=== PATIENT | female | born 2000 | race Caucasian/White ===

== ENCOUNTER 2025-02-07 11:50 | Outpatient (CLI) | payer OTHER, SELFPAY ==
[2025-02-07 15:40] LABS: Bacterial Vaginosis* Negative (Negative); Candida glab/krus NOT DETECTED (No Detected)
== END 2025-02-07 11:51 | disposition home or self-care (01) ==
PROVIDERS: Visit Provider Physician Assistant
DX: N89.8 Other specified noninflammatory disorders of vagina (principal); Z34.93 Encounter for supervision of normal pregnancy, unspecified, third trimester
CPT/HCPCS: 81513; 87086; 87481; 87661

== ENCOUNTER 2025-03-21 09:40 | Outpatient (CLI) | payer OTHER, SELFPAY ==
[2025-03-22 11:54] LABS: Strep B DNA Probe Negative (Negative)
[2025-03-22 12:21] LABS: Strep B Susceptibility Needed? No
== END 2025-03-21 09:41 | disposition home or self-care (01) ==
PROVIDERS: Visit Provider Obstetrics & Gynecology
DX: Z88.0 Allergy status to penicillin (principal); Z34.93 Encounter for supervision of normal pregnancy, unspecified, third trimester
CPT/HCPCS: 87081; 87653

== ENCOUNTER 2025-03-28 08:58 | Outpatient (CLI) | payer OTHER, SELFPAY ==
[2025-03-28] VITALS (14 sets, daily range): BP systolic 118–128; BP diastolic 74–87; PULSE 92–107; RESP 14–18; TEMP 36.9; O2SAT 96–98; BMI 34.3
--- OUTSIDE RECORDS SUMMARY | 2025-03-28 09:01 | XMS_ITS | Clinical Summary ---
Author Organization [employer] [facility] Address [address] [place] [id number] Care Team Providers Care Case Management Assistant Name Role Phone Tramaine Bhatia MD Primary Care Provi pippa Allergies Active AllergyReactionsCriticalityNoted FgmnBkkddbakRbpunibgefaTwac80/03/2013 CilantroShortness Of Cqywcz5209/09/2022Fish Containing GdxsguqlBywpyhl57/21/2023 GlutenGI Upset04/29/2019LatexShortness Of Sgndtj0704/29/2019Melon FlavorItching 05/09/2012PeanutShortness Of Eyzsfs5104/29/2019Tree EguSbtsginbhqhGcng36/27/2024 Unknown-Follow Up Needed (Include Details In Comments)Shortness Of Breath 05/09/2012 Cat, dog, seasonal, environmental Sheep/Ovine/[place] Containing ProductsShortness Of Zyibsu2905/09/2012 Medications MedicationSigDispense QuantityRefillsLast FilledStart DateEnd DateStatus thnwnes-tzyq-slrga acid (PREPLUS;NATALCARE PLUS) 27 mg iron- 1 mg tablet Take 1 Tablet by mouth once daily.Active ibuprofen (ADVIL; MOTRIN) 600 mg tablet Indications:Vacuum-assisted vaginal delivery (HC)Take 1 Tablet (600 mg) by mouth every 6 hours if needed for Pain. Maximum of 3200 mg in 24 hours. 50 Tablet ctive sennosides (SENNA) 8.6 mg tablet Indications:Vacuum-assisted vaginal delivery (HC)Take 1-2 Tablets (8.6-17.2 mg) by mouth 2 times daily if needed for Constipation. 60 Tablet ctive Active Problems ProblemNoted DateDiagnosed Date39 weeks gestation of nsfucxlpo72/27/2024 Premature rupture of membranes (PROM) affecting first ytpmkajfy40/27/2024Vacuum- assisted vaginal akezpnnm34/27/2024dnexal mass05/03/2019 Immunizations ImmunizationAdministration DatesNext DfiYMI6807/03/2023()Tdap05/12/2023,05/20/2016 Family History Medical HistoryRelationNameCommentsNo Known ProblemsFatherCancer-breastMother RelationNameStatusCommentsFatherAliveMother Social History Tobacco UseTypesPacks/DayYears UsedDateSmoking Tobacco: Never Tobacco Cessation:Counseling Given: Yes Alcohol UseStandard Drinks/WeekCommentsNot Currently0 (1 standard drink = 0.6 oz pure alcohol)Social ConnectionsAnswerDate RecordedDo you often feel lonely or isolated from those around you?Financial Resource StrainAnswerDate RecordedDifficulty of Paying Living Mozqsbre364ifficulty of Paying Living ExpensesNot on file07/01/2023Food InsecurityAnswerDate RecordedDo you worry your food will run out before you are able to buy more? Transportation NeedsAnswerDate RecordedDoes lack of transportation keep you from medical appointments?oes lack of transportation keep you from work, meetings or getting things that you need?Housing StabilityAnswerDate RecordedWhat is your housing situation today?Interpersonal Safety AnswerDate RecordedAre you being hit, kicked, pushed or yelled at (see row info)?No09/30/2023Interpersonal Safety Abuse 12 - 18Not on file09/30/2023 Interpersonal Safety Ambulatory VulnerabilityNot on file09/30/2023Utilities AnswerDate RecordedDo you have trouble paying for utilities (for example, heat, electricity, water, phone)?regnantCommentsNoSex and Gender InformationValueDate RecordedSex Assigned at BirthNot on fileLegal SexFemale 04/19/2012 6:17 AM CSTGender IdentityNot on fileSexual OrientationNot on file Obstetrics History GravidaParaTermPretermABIABSABEctopicMultipleLivingLive [id number] OutcomeGATotal LaborLabor/2nd/8vjSfawgmDbbYbrkOuleCFGKohO9D1LqoeJttp97/27/2024 Tzfd14f6i89k 59m11h 36m/0h 18m/0h 05m2.64 kg (5 lb 13.1 oz)FVAGINAL VACUEpidural Crzhpe91Ewxpolu Garcia, Ayan Luevano, MDComplications:Category II: IndeterminateDelivery Location:Hospital ([facility] ) Last Filed Vital Signs Vital SignReadingTime TakenCommentsBlood Wskibjmy204/63009/30/2023 4:32 PM CDT Wfzuj265209/30/2023 5:03 PM NFNWfqwjupwyvw49.1 ??C (98.8 ??F)09/30/2023 2:14 PM CDTRespiratory Blis321209/30/2023 2:14 PM CDTOxygen Akfbaclyqn57%09/30/2023 5:03 PM CDTInhaled Oxygen Concentration--Ajlzmr91.2 kg (130 lb 9.6 oz)09/30/2023 2:13 PM POGVqimee392.8 cm (5' 2.5)09/30/2023 2:13 PM CDTBody Mass Index23.51 09/30/2023 2:13 PM CDT Plan of Treatment Health MaintenanceDue DateLast DoneCommentsDepression screening for age 12+ 2010HPV series for age 9-45 (1 - 3-dose series)2013MI (ht and wt on same day) for age 18+2016Hepatitis C screening for age 18- Hepatitis B series for 19+ (1 of 3 - 19+ 3-dose series)2017Pap test for age 21-COVID-19 vaccine series ( - 2024- season)2024 Influenza Vaccine (#1)2024Tetanus pkebige21, 05/20/2016 HIV for age 15-21Kwgkijzsq35/05/2023Pneumococcal series for age 6-49Aged OutNo longer eligible based on patient's age to complete this topic Procedures Procedure NamePriorityDate/TimeAssociated DiagnosisCommentsHIV EXTERNALRoutine 12/09/2022 from Last 3 Months or Most Recently Relevant to Health Maintenance Results * HIV EXTERNAL (12/09/2022)ComponentValueRef RangeTest MethodAnalysis Time Performed AtPathologist SignatureEXTERNAL HIVNegativeMAYO CLINICSpecimen (Source)Anatomical Location / LateralityCollection Method / VolumeCollection TimeReceived TimeBloodBLOOD SPECIMEN / Unknown Narrative Authorizing ProviderResult TypeResult StatusRaquel Jim Garrido DO LABORATORYFinal ResultPerforming OrganizationAddressCity/State/ZIP CodePhone Number [facility] [address] [place] [phone], from Last 3 Months or Most Recently Relevant to Health Maintenance Insurance * Guarantor: IZABELLA GARLAND TypeRelation to PatientDate of BirthPhone Billing AddressPersonal/ObtccgRbeh49/20/2001 [address] [facility] [place] [id number] * Guarantor: Na GARLAND TypeRelation to PatientDate of BirthPhone Billing AddressPersonal/Family [address] [place] [address] * Guarantor: Andrew Garland TypeRelation to PatientDate of PhoneBilling AddressMotor BlqjvnqUtooiw44/13/1966 [address] [address] [place] [address] * Guarantor: IZABELLA GARLAND TypeRelation to PatientDate of BirthPhone Billing AddressMotor GgjreblTlui91/20/2001 [address] [id number] Advance Directives * Full Code (Latest Code Status on File) Date ActivatedDate InactivatedComments07/01/2023 5:02 PM07/03/2023 7:36 PMQuestion AnswerCommentsCode Status Discussion:* Reviewed Preferences * Full Code Date ActivatedDate InactivatedComments05/02/2019 11:28 AM05/03/2019 7:54 PM QuestionAnswerCommentsCode Status Discussion:* Discussed Care Teams Team MemberRelationshipSpecialtyStart DateEnd Date Tramaine Bhatia MD [address] [place] [address] [facility]
--- OUTSIDE RECORDS SUMMARY | 2025-03-28 09:01 | XMS_ITS | Encounter Summary ---
Author Organization [facility] Address [address] [place] [address] Care Team Providers Care Latex Foam Worker Name Role Phone ChrisManpreetMindinina Richmond APRN, C.N.P., D.N.P. Primary Car e Provider Encounter Details DateTypeDepartmentCare Team (Latest Contact Info)Nmpzjdulmlf15/13/2025Results Follow-Up Department of Obstetrics and Gynecology in [place], [place] [address] [place] [phone] Farshad Wong M.D. [address] [place] [phone] Bacterial Culture, Aerobic + Susceptibility, Urine Social History Tobacco UseTypesPacks/DayYears UsedDateSmoking Tobacco: NeverSmokeless Tobacco: NeverAlcohol UseStandard Drinks/WeekCommentsNever0 (1 standard drink = 0.6 oz pure alcohol)[facility] UtilitiesAnswerDate RecordedIn the past 12 months has the electric, gas, oil, or water company threatened to shut off services in your home?No09/10/2023Humiliation, Afraid, Rape, and Kick questionnaireAnswerDate RecordedWithin the last year, have you been afraid of your partner or ex-partner?No09/08/2022Within the last year, have you been humiliated or emotionally abused in other ways by your partner or ex-partner?No09/08/2022 Within the last year, have you been kicked, hit, slapped, or otherwise physically hurt by your partner or ex-partner?No09/08/2022Within the last year, have you been raped or forced to have any kind of sexual activity by your part ner or ex-partner?No09/08/2022Hunger Vital SignAnswerDate RecordedWithin the past 12 months, you worried that your food would run out before you got the money to buymore.Never true09/10/2023Within the past 12 months, the food you bought just didn't last and you didn't have money to get more.Never true 09/10/2023RAPARE - TransportationAnswerDate RecordedIn the past 12 months, has lack of transportation kept you from medical appointments or from getting medications?No09/10/2023In the past 12 months, has lack of transportation kept you from meetings, work, or from getting things needed for daily living?No 09/10/2023ostpartum DepressionAnswerDate RecordedPHQ-9 Total Score (max 27)1 01/12/2025Housing StabilityAnswerDate RecordedWhat is your living situation today?I have a steady place to live09/10/2023EducationAnswerDate RecordedWhat is the highest level of school you have completed or the highest degree you have received?Associate degree: academic ffwkgku0504/12/2019Estimated Date of AylddxruTwuraobbKkn93/06/2026Based on last menstrual period of 07/05/2024Sex and Gender InformationValueDate RecordedSex Assigned at AzbrwFcmusx54/14/2023 9:10 PM CDTLegal BjdQmhidf87/03/2017 4:27 AM CSTGender WfwkfvqiOucokm79/14/2023 9:10 PM CDTSexual TbjocrmjdqqVtpybmdo25/14/2023 9:10 PM CDTOccupationIndustryJob Start DateJob End DatestudentNot on fileNot on fileNot on filedocumented as of this encounter Miscellaneous Notes * Result Encounter Note - Farshad Wong M.D. - 01/16/2025 9:38 AM CDT Your urine culture showed infection. I have sent antibiotics to your pharmacy. Please call with anyquestions documented in this encounter Plan of Treatment Not on file documented as of this encounter Visit Diagnoses Not on filedocumented in this encounter Additional Health Concerns AssessmentNoted TimePHQ-9 Depression Total Score: 110 8:38 AM CDT documented as of this encounter Care Teams Team MemberRelationshipSpecialtyStart DateEnd Date Mindi Perez APRN, C.N.P., D.N.P. [address] [place] [phone] PCP - General05/12/24documented as of this encounter
--- OUTSIDE RECORDS SUMMARY | 2025-03-28 09:01 | XMS_ITS | Clinical Summary ---
Author Organization [facility] Address [address] [place] [address] Care Team Providers Care Weekend Receptionist Name Role Phone Mindi Perez APRN, C.N.P., D.N.P. Primary Car e Provider Source Comments Patient records contain information from all sites at [facility]. For routine questions regarding patient records, call [phone] during business hours, M-F 8:00 AM - 5:00 PM Central Time. Record requests for emergency care only can be directed to [phone] at any time.[facility] Allergies Active AllergyReactionsCriticalityNoted PdxxDjmlekxxQxbeadoercoAjxp46/27/2010 RioauuirQuzzepojfcp78/05/2023Fish Containing ProductsShortness of breath 11/24/2022lutenGI iuaoxtgpifn52/24/2020LatexShortness of breath (Reselect Reaction)04/29/2019Melon YfpbcbFhbgedh32/03/2013PeanutShortness of breath (Reselect Reaction)04/29/2019Sheep/Ovine/Duarte Containing ProductsShortness of breath (Reselect Reaction)05/09/2012Tree JdvTqzblltspruQjjp83/03/2024 Medications * This document contains information received from the source organization and may not represent a complete record from that organization. MedicationSigDispense QuantityRefillsLast FilledStart DateEnd DateStatus lctrdju-Rh-gwoa-FA 27 mg iron- 1 mg tablet Take 1 tablet by mouth daily.Active EPINEPHrine 0.3 mg/0.3 mL injection syringe Indications:Allergy Food InitialInject 0.3 mL (0.3 mg total) intramuscularly as needed for anaphylaxis. Inject into the thigh. 2 each 5Active nitrofurantoin monohydrate (Macrobid) 100 mg capsule Indications:Urinary Tract Infection (HCC)Take 1 capsule (100 mg total) by mouth 2 (two) times a day. 10 capsule 5Active Additional Information Patient not taking.Reported on 01/26/2025 José Miguel-Zevbif-SJonnytherm (Bacid) 1 billion cell- 250 mg per tablet Take 1 tablet by mouth daily.Active Active Problems ProblemNoted DateDiagnosed DateUrinary Tract Infection Ejvvldcdq32/12/2025 Overview (12/21/2024): Currently under treatment with Invanz 1 gram IV daily x 7 days Plan test of cure at next clinic visit Examination Other Normal Second Mvdxubwkq09/01/2025 Overview (11/04/2024): 11/04/2024: Patient complains of urinary frequency and some irritation when she urinates. Dischargereally has not changed. She also has some urinary frequency and occasionally feels dizzy. He is going to work on making sure she gets adequate fluid and frequent small meals and consider either iron supplementation or a early repeat blood count with next visit in 2 weeks. Initial hemoglobin with labs was 12.8. She is taking vitamins. Vaginitis panel and urinalysis as well as urine culture all sent. We will treat accordingly. Cervixappears to be long and closed and vaginal discharge is normal. Abdominal With Intrauterine Ctpcgiecz91/25/2025llergy Penicillin Antibiotic Personal Rqiqmis3710/28/2024llergy Penicillin Gousccx9410/28/2024llergy Penicillin Antibiotic Personal Xwyzhlt0408/04/2024Gastroesophageal Reflux Disease 06/22/2023 Overview (06/22/2023): Rx Omeprazole today. stop Pepcid and continue Tums prn. diet changes discussed Need Vaccine Immunization Hemlwdt4812/23/2022 Overview (12/21/2024): -offer rubella immunization Laparotomy Exploratory Status Post12/07/2022 Overview (12/07/2022): Dermoid removal 04/2019 Rhinitis Adbjrkqj10/15/4158Zxjuyjrmf35/16/2010Estimated Date of Delivery VwksudozBii10/06/2026ased on last menstrual period of 07/05/2024 Resolved Problems ProblemNoted DateDiagnosed DateResolved DateInadequate Weight Gain /04/2024Encounter For Supervision Of Normal First Unspecified Ryurrfqap09/04/2024 Overview (06/29/2023): Estimated Date of Delivery: 07/03/23 based on 10 week ultrasound, 1 week discrepant form LMP dating FOB: Abimael Carrier/aneuploidy screening: MaterniT 21 neg Rubella NI O+ blood type anatomy scan: wnl OGTT: normal 04/08/23 Hb at 28 weeks: 12.4 Tdap:05/29/2023 Cephalic by BS US at 35w GBS: 06/08/23 negative PPBC: NFP + condoms 06/08/2023 ultrasound: 35+2, 26%ile, cephalic Last SVE: /-2 Delivery planning: desires spontaneous labor Next visit: monitor weight gain and GERD sx, IOL? Issues: Normal preg Hx Laparotomy for Dermoid 2019 (Pfannenstiel) Pregravid BMI 31 Flank pain: Onset flank pain and cramping 01/22, UA positive for leukocytes urine culture negative took cefadroxil 500 mg x 2 doses. Went to ED 01/23 for symptoms, UA negative and was discharged to home for likely round ligament pain. Developed URI symptoms on 01/24, supportive therapy recommended and ED precautions provided Inadequate weight gain: At 20 weeks. Discussed nutrition recommendations and increasing caloric intake and integrating high protein snacks throughout the day. Improved at 24 weeks. Continue to monitor. Improving at 34 week visit. Stable at 35w. Decreased again at 38w and 39w -> Growth US and BPPordered GERD- Rx omeprazole 06/21. Tumor Ukzyrhu85 Overview (05/09/2019): Underwent exploratory laparotomy with removal of 11.3 cm dermoid cyst from left ovary on 05/02/2019. Encounters DateTypeDepartmentCare QyyrOlyisxhlagl78/01/2025Orders Only [facility] Karely Keith P.A.-C., M.S. 01/26/2025 4:15 PM CDTRoutine Department of Obstetrics and Gynecology in [address] [address] Farshad Wong M.D. Examination Other Normal Third Trimester (HCC) (Primary Dx) Discharge Disposition: Home or Self Care01/20/2025linical Communication Department of Family Medicine, [facility], in [address] [address] Dasha Gloria, RTanika 01/16/2025Results Follow-Up Department of Obstetrics and Gynecology in [address] [address] Farshad Wong M.D. Bacterial Culture, Aerobic + Susceptibility, Urine01/12/2025 8:50 AM CDT - 01/12/2025 11:59 PM CDTHospital Encounter Department of Laboratory Medicine in [address] [address] Farshad Wong M.D. Urinary Tract Infection (HCC) (Primary Dx); Examination Other Normal Third Trimester (HCC) Discharge Disposition: Home or Self Care01/12/2025 8:45 AM CDTRoutine Department of Obstetrics and Gynecology in [address] [address] Farshad Wong M.D. Examination Other Normal Third Trimester (HCC) (Primary Dx); Bacteriuria Asymptomatic (HCC)01/12/2025Orders Only Department of Obstetrics and Gynecology in [place], [place] [address] [place] [address] Farshad Wong M.D. Examination Other Normal Third Trimester (HCC) (Primary Dx) from Last 3 Months Immunizations ImmunizationAdministration DatesNext DueDTaP (Inf[employer], [employer])04/23/1999, 02/22/1999HepB, Zhxwzsstqod81/18/2000Hib, Dbezapihfcc30/18/2000,02/22/1999IPV 04/23/1999,02/22/1999Tdap05/12/2023,05/20/2016Tetanus Toxoid, Adsorbed (discontinued)10/05/2007 Family History Medical HistoryRelationNameCommentsNo Known ProblemsFatherHeart attackMaternal GrandfatherRogerBreast cancer (in one breast)Maternal GrandmotherLoisBreast cancer (in one breast)MotherTamara RobertsColon cancerMother's BrotherBrent CarlsonCoronary artery diseasePaternal GrandfatherOwen RobertsBrain Aneurysm Paternal GrandmotherNo Known ProblemsSisterRelationNameStatusCommentsFatherAlive Maternal GrandfatherRogerDeceasedMaternal GrandmotherLoisDeceasedMotherTamara RobertsAliveMother's BrotherBrent CarlsonPaternal GrandfatherOwen RobertsAlive Paternal GrandmotherDeceased (Age 62)SisterAlive Social History Tobacco UseTypesPacks/DayYears UsedDateSmoking Tobacco: NeverSmokeless Tobacco: Never Tobacco Cessation:Counseling Given: Not Answered Alcohol UseStandard Drinks/WeekCommentsNever0 (1 standard drink = 0.6 oz pure alcohol)[facility] UtilitiesAnswerDate RecordedIn the past 12 months has the [employer], oil, or water [employer] threatened to shut off services in your home?No 09/10/2023Humiliation, Afraid, Rape, and Kick questionnaireAnswerDate Recorded Within the last year, have you been afraid of your partner or ex-partner?No 09/08/2022Within the last year, have you been humiliated or emotionally abused in other ways by your partner or ex-partner?No09/08/2022Within the last year, have you been kicked, hit, slapped, or otherwise physically hurt by your partner or ex-partner?No09/08/2022Within the last year, have you been raped or forced to have any kind of sexual activity by your partner or ex-partner?No09/08/2022 Hunger Vital SignAnswerDate RecordedWithin the past 12 months, you worried that your food would run out before you got the money to buymore.Never true09/10/2023 Within the past 12 months, the food you bought just didn't last and you didn't have money to get more.Never true09/10/2023RAPARE - TransportationAnswerDate RecordedIn the past 12 months, has lack of transportation kept you from medical appointments or from getting medications?No09/10/2023In the past 12 months, has lack of transportation kept you from meetings, work, or from getting things needed for daily living?No09/10/2023ostpartum DepressionAnswerDate RecordedPHQ- 9 Total Score (max 27)Housing StabilityAnswerDate RecordedWhat is your living situation today?I have a steady place to live09/10/2023Education AnswerDate RecordedWhat is the highest level of school you have completed or the highest degree you have received?Associate degree: academic rrnwurw3504/12/2019 Estimated Date of WctigstmRoftfqyuFys84/06/2026ased on last menstrual period of 07/05/2024Sex and Gender InformationValueDate RecordedSex Assigned at VvhvtTxeuui32/14/2023 9:10 PM CDTLegal FbaQynyeh98/03/2017 4:27 AM CSTGender MfxugkrcYnxvcy30/14/2023 9:10 PM CDTSexual ZbdwjwyoazlLfguprdd72/14/2023 9:10 PM CDTOccupationIndustryJob Start DateJob End DatestudentNot on fileNot on fileNot on file Last Filed Vital Signs Vital SignReadingTime TakenCommentsBlood Gguwcvnq366/7810 4:08 PM CDT Csfrb3487 4:08 PM ERKNtugbllxtmq27.9 ??C (98.4 ??F)12/26/2024 8:29 AM CDTRespiratory Bjrr03315 8:23 AM CDTOxygen Lgwqddeqhx94%12/26/2024 8:29 AM CDTInhaled Oxygen Concentration--Wcnfji49.2 kg (172 lb 6.4 oz)01/26/2025 4:08 PM YQVNlunai577 cm (5' 2.99)09/05/2024 8:39 AM CDTBody Mass Index30.55 09/05/2024 8:39 AM CDT Plan of Treatment Health MaintenanceDue DateLast DoneCommentsHepatitis B Vaccines (2 of 3 - 3-dose series)IPV Vaccines (3 of 3 - 4-dose series)2002 04/23/1999, 02/22/1999HPV Vaccines (1 - 3-dose series)2013COVID-19 Vaccine (1 - season)2024Influenza Vaccine (#1)2024Tdap vaccine - (27-36 weeks) (1 - Tdap)/09/2023, 05/20/2016, 04/23/1999, Additional history existsCervical/Vaginal Cancer Bfuobwmbp42/03/2022, 01/15/2022TaP,Tdap,and Td Vaccines (5 - Td or Tdap)/09/2023, 05/20/2016, 04/23/1999, Additional history existsChlamydia and Gonorrhea ThqnnkpbfKqrshgouwkgu54/02/2025, 08/07/2023, 12/23/2022HIV ScreeningCompleted 10/10/2024, 12/09/2022Hepatitis C WxdbaqxkdZodnnhwqc38/07/2025, 12/09/2022 Depression Screening (Annual PHQ-2)Hcrwpwmrr39/09/2025Pneumococcal vaccine (0-49 years)Aged OutNo longer eligible based on patient's age to complete this topic RSV vaccine - (32-36 weeks) or 50+ years (No Doses Required)Completed Procedures Procedure NamePriorityDate/TimeAssociated DiagnosisCommentsHEMOGLOBIN, BRoutine 01/12/2025 9:45 AM CDT Examination Other Normal Third Trimester (HCC) GLUCOSE MARCELINA, 1HR, S/SZyypbil05/09/2025 9:45 AM CDT Examination Other Normal Third Trimester (HCC) SYPHILIS TOTAL AB W/ REFLEX MSvxtfcm40/09/2025 9:45 AM CDT Examination Other Normal Third Trimester (HCC) BACTERIAL CULTURE, AEROBIC + SUSC, NFMHZOghgtng10/09/2025 9:43 AM CDT Examination Other Normal Third Trimester (HCC) HCV AB SCRN , BAhehmra40/07/2025 9:55 AM CDT Encounter For Supervision Of Other Normal Unspecified Trimester (HCC) HIV-1/-2 AG AND AB SCRN, GOHYKEVnubdmb85/07/2025 9:55 AM CDT Encounter For Supervision Of Other Normal Unspecified Trimester (HCC) CHLAMYDIA/GONORRHOEAE AMPLIFIED SJSUgadoyf39/02/2025 12:40 PM CDT Encounter For Supervision Of Other Normal Unspecified Trimester (HCC) HPV WITH GENOTYPING, PCR, WXZXEYSJVsgayze94/12/2022 11:40 AM CDT from Last 3 Months or Most Recently Relevant to Health Maintenance Results * Syphilis Total Antibody with Reflex, S ([facility]) (01/12/2025 9:45 AM CDT) ComponentValueRef RangeTest MethodAnalysis TimePerformed AtPathologist SignatureSyphilis Total Ab w/ IrjkwzYtwwdfxxvayCgcrzyozczd01/10/2025 12:15 PM CDTWSCAComment: No serologic evidence of infection with T. pallidum (syphilis). ??Repeat testing may be considered in patients with suspected acute or primary syphilis in 2-4 weeks. For additional information on interpretation of the syphilis reverse algorithm and results, see: [email or web address]-[email or web address]_[email or web address].pdf Specimen (Source)Anatomical Location / LateralityCollection Method / Volume Collection TimeReceived TimeBlood (Blood, Venous)01/12/2025 9:45 AM CDT 01/13/2025 10:37 AM CDT Narrative Authorizing ProviderResult TypeResult Anjum Wong M.D.LAB BLOOD ADD-ON Final ResultPerforming OrganizationAddressCity/State/ZIP CodePhone Number [facility] [address] [place] [address], [place] [facility] [place] [address] [place] [address] * Glucose Tolerance Test, 1 hour (01/12/2025 9:45 AM CDT)ComponentValueRef Range Test MethodAnalysis TimePerformed AtPathologist SignatureGlucose Marcelina, 1 Hr, P 125<140 mg/dL01/12/2025 10:18 AM CDTOWATSpecimen (Source)Anatomical Location / LateralityCollection Method / VolumeCollection TimeReceived TimeBlood (Blood, Venous)01/12/2025 9:45 AM CDT1 9:55 AM CDT Narrative Authorizing ProviderResult TypeResult StatusFarshad Wong M.D.LAB BLOOD NON ADD-ONFinal ResultPerforming OrganizationAddressCity/State/ZIP CodePhone Number [facility] [address] [place] [address], [place] [facility] [place] [address], [place] [address] * Hemoglobin (01/12/2025 9:45 AM CDT)ComponentValueRef RangeTest MethodAnalysis TimePerformed AtPathologist NxxbxgadzXtsujhlzsv46.711.6 - 15.0 g/dL01/12/2025 9:57 AM CDTOWATSpecimen (Source)Anatomical Location / LateralityCollection Method / VolumeCollection TimeReceived TimeBlood (Blood, Venous)01/12/2025 9:45 AM CDT1 9:54 AM CDT Narrative Authorizing ProviderResult TypeResult StatusFarshad Wong M.D.LAB BLOOD ADD-ON Final ResultPerforming OrganizationAddressCity/State/ZIP CodePhone Number [facility] [address] [place] [address], [place] [facility] [place] [address] [place] [address] * (ABNORMAL) Bacterial Culture, Aerobic + Susceptibility, Urine (01/12/2025 9:43 AM CDT)ComponentValueRef RangeTest MethodAnalysis TimePerformed AtPathologist SignatureUrine CultureWith urogenital microbiota, susceptibilities not performed per laboratory criteria. (A)01/14/2025 6:38 AM CDTMKTOUrine CultureENTEROCOCCUS FAECALIS 10,000-100,000 cfu/mL (A)01/14/2025 6:38 AM CDTMKTOSpecimen (Source)Anatomical Location / Laterality Collection Method / VolumeCollection TimeReceived TimeUrine (Urine, Midstream) 01/12/2025 9:43 AM CDT1 1:51 PM CDTComment:Specimen Source Site: Urine Narrative OrganismAntibioticMethodSusceptibilityEnterococcus faecalisAmpicillin SUSCEPTIBILITY, LORENA (MCG/ML) <=2 mcg/mL: Susceptible Enterococcus faecalisCiprofloxacinSUSCEPTIBILITY, LORENA (MCG/ML) <=0.5 mcg/mL: Susceptible Enterococcus faecalisLinezolidSUSCEPTIBILITY, LORENA (MCG/ML) 2 mcg/mL: Susceptible Enterococcus faecalisDaptomycinSUSCEPTIBILITY, LORENA (MCG/ML) 2 mcg/mL: Susceptible Enterococcus faecalisVancomycinSUSCEPTIBILITY, LORENA (MCG/ML) 1 mcg/mL: Susceptible Enterococcus faecalisTetracyclineSUSCEPTIBILITY, LORENA (MCG/ML) >=16 mcg/mL: Resistant Enterococcus faecalisNitrofurantoinSUSCEPTIBILITY, LORENA (MCG/ML) <=16 mcg/mL: Susceptible Authorizing ProviderResult TypeResult StatusScdarrick Wong M.D.LAB MICROBIOLOGY - GENERAL ORDERABLESFinal ResultPerforming OrganizationAddressCity/State/ZIP CodePhone Number [facility] [address] [place] [address], [place] [facility] [place] [address] [place] [address] * Hepatitis C Virus Antibody Screen (10/10/2024 9:55 AM CDT)Component ValueRef RangeTest MethodAnalysis TimePerformed AtPathologist SignatureHCV Ab Scrn , IDzxyeqtuAaqnzzyc32/08/2025 10:10 AM CDTSDSCComment: Consumption of high-dose biotin supplement within 12 hours of blood collection for this test can cause false-negative results. Specimen (Source)Anatomical Location / LateralityCollection Method / Volume Collection TimeReceived TimeBlood (Blood, Venous)10/10/2024 9:55 AM CDT 10/11/2024 7:15 AM CDT Narrative Authorizing ProviderResult TypeResult StatusFrashad Wong M.D.LAB MICROBIOLOGY - BLOOD ORDERABLESFinal ResultPerforming OrganizationAddressCity/State/ZIP Code Phone Number [facility] [address] [place] [address] [facility] [address] [place] [address] * HIV-1/-2 Ag and Ab Scrn, Plasma (10/10/2024 9:55 AM CDT)Component ValueRef RangeTest MethodAnalysis TimePerformed AtPathologist SignatureHIV Ag/Ab Scrn, KZqomjhnrWtstyidi33/08/2025 7:25 AM CDTWSCAComment: Negative result does not rule out HIV infection. If exposure to HIV infection occurred <14 days ago, contact the laboratory to request addition of HIV-1/HIV-2 RNA detection , Plasma (HPP12). HIV-1 p24 Ag Scrn, ENehpwslfNntputvs98/08/2025 7:25 AM CDTWSCAComment: Negative result does not rule out HIV infection. If exposure to HIV infection occurred <14 days ago, contact the laboratory to request addition of HIV-1/HIV-2 RNA detection , Plasma (HPP12). HIV-1 Ab Scrn, GLxkkdyqgGftqxxiq01/08/2025 7:25 AM CDTWSCAComment: Negative result does not rule out HIV infection. If exposure to HIV infection occurred <14 days ago, contact the laboratory to request addition of HIV-1/HIV-2 RNA detection , Plasma (HPP12). HIV-2 Ab Scrn, LGpplymfqOncwsdcf88/08/2025 7:25 AM CDTWSCAComment: Negative result does not rule out HIV infection. If exposure to HIV infection occurred <14 days ago, contact the laboratory to request addition of HIV-1/HIV-2 RNA detection , Plasma (HPP12). Specimen (Source)Anatomical Location / LateralityCollection Method / Volume Collection TimeReceived TimeBlood (Blood, Venous)10/10/2024 9:55 AM CDT 10/10/2024 3:08 PM CDT Narrative Authorizing ProviderResult TypeResult StatusFarshad Wong M.D.LAB MICROBIOLOGY - BLOOD ORDERABLESFinal ResultPerforming OrganizationAddressCity/State/ZIP Code Phone Number [facility] [address] [place] [address], [facility] [place] [address] [place] [address] * Chlamydia / Gonorrhoeae Amplified RNA (09/05/2024 12:40 PM CDT)ComponentValue Ref RangeTest MethodAnalysis TimePerformed AtPathologist SignatureSourceSwab, Loogab0209/05/2024 11:54 PM CDTMKTOChlamydia trachomatis amplified RNANegative Ogipihcl71/02/2025 11:54 PM CDTMKTOSourceSwab, Wfdvrc6509/05/2024 11:54 PM CDT MKTONeisseria gonorrhoeae amplified DVCWutpfdjrNhrrrljf94/02/2025 11:54 PM CDT MKTOSpecimen (Source)Anatomical Location / LateralityCollection Method / VolumeCollection TimeReceived TimeSwab (Vagina)09/05/2024 12:40 PM CDT 09/05/2024 7:12 PM CDT Narrative Authorizing ProviderResult TypeResult StatusFarshad Wong M.D.LAB MICROBIOLOGY - GENERAL ORDERABLESFinal ResultPerforming OrganizationAddressCity/State/ZIP CodePhone Number [facility] [address] [place] [address], [facility] [address] [address] * HPV with Genotyping, PCR, ThinPrep (01/15/2022 11:40 AM CDT)ComponentValueRef RangeTest MethodAnalysis TimePerformed AtPathologist SignatureHPV with Genotyping, ThinPrep, FATKiloqwweYqwdseok96/13/2022 2:48 PM CDTMKTOComment: Negative for high risk HPV by nucleic acid amplification. ??The following high risk HPV types were not detected: 16, 18, 31, 33, 35, 39, 45, 51, 52, 56, 58, 59, 66, and 68 This result does not rule out HPV in the patient, as the sensitivity of the test depends on the timing of the specimen collection and the quality of the specimen. Result should be correlated with patient's history, clinical presentation, and CANDY MIXER cytology report. Specimen (Source)Anatomical Location / LateralityCollection Method / Volume Collection TimeReceived Time01/15/2022 11:40 AM CDT1 6:57 AM CDT Narrative Authorizing ProviderResult TypeResult StatusGloh Carter M.D.LAB MICROBIOLOGY - GENERAL ORDERABLESFinal ResultPerforming OrganizationAddressCity/State/ZIP Code Phone Number [facility] [address] [place] [address], [facility] in [place] [address] [place] [address] from Last 3 Months or Most Recently Relevant to Health [place] [address] [address] [place] [address] Care Teams Team MemberRelationshipSpecialtyStart DateEnd Date Mindi Perez APRN, C.N.P., D.N.P. [address] [place] [address] PCP - General05/12/24
--- OUTSIDE RECORDS SUMMARY | 2025-03-28 09:01 | XMS_ITS | Encounter Summary ---
Author Organization [facility] Address [address] [place] [address] Care Team Providers Care Coach Mechanic Name Role Phone ChrisMindi Yi STREETER, C.N.P., D.N.P. Primary Car e Provider Reason for Referral * Outpatient (Routine) - AuthorizedSpecialtyDiagnoses / ProceduresReferred By ContactReferred To ContactCommunity Internal Medicine Karely Keith P.A.-C., M.S. [address] [place] [address] Phone: tel: fax: [facility] Referral IDStatusReasonJacksonville DateExpiration DateVisits RequestedVisits [id number]/1/20256/ [place] Encounter Details DateTypeDepartmentCare Team (Latest Contact Info)Iwgipmtrbcy87/01/2025Orders Only [facility] Karely Keith P.A.-C., M.S. [address] [place] [phone] Social History Tobacco UseTypesPacks/DayYears UsedDateSmoking Tobacco: NeverSmokeless Tobacco: NeverAlcohol UseStandard Drinks/WeekCommentsNever0 (1 standard drink = 0.6 oz pure alcohol)[facility] UtilitiesAnswerDate RecordedIn the past 12 months [...] highest degree you have received?Associate degree: academic zefrykw5904/12/2019Estimated Date of HenzpgdxJnolvbexRhj60/06/2026Based on last menstrual period of 07/05/2024Sex and Gender InformationValueDate RecordedSex Assigned at LutqkDnoxnp02/14/2023 9:10 PM CDTLegal NcnJvhfjq64/03/2017 4:27 AM CSTGender WousfgcpVvtktr38/14/2023 9:10 PM CDTSexual EwrrxlabhpdSkreiruy57/14/2023 9:10 PM CDTOccupationIndustryJob Start DateJob End DatestudentNot on fileNot on fileNot on filedocumented as of this encounter Plan of Treatment NameTypePriorityAssociated DiagnosesOrder ScheduleCommuncincinnati va medical center Internal Medicine office visit (clinic)Outpatient ReferralRoutineExpected: 03/20/2025, Expires: 08/23/2025documented as of this encounter Visit Diagnoses Not on filedocumented in this encounter Additional Health Concerns AssessmentNoted TimePHQ-9 Depression Total Score: 110 8:38 AM CDT documented as of this encounter Care Teams Team MemberRelationshipSpecialtyStart DateEnd Mindi Perez APRN, C.N.P., D.N.P. [address] [place] [address] PCP - General05/12/24documented as of this encounter
[2025-03-28 09:30] LABS: Appearance Urine Clear (Clear)
--- NOTE | 2025-03-28 09:37 | CRLHL7_ITS ---
For Patients: As a result of the Century Cures Act, medical imaging exams and procedure reports are released immediately into your electronic medical record. You may view this report before your referring provider. If you have questions, please contact your health care provider. INDICATION: MID RIGHT LEG SWELLING TECHNIQUE: Venous duplex ultrasound of the right lower extremity utilizing compression with weber-scale, color Doppler, and spectral Doppler imaging. COMPARISON: None FINDINGS: There is no sonographic evidence of deep vein thrombosis in the right common femoral, deep femoral, superficial femoral, popliteal, posterior tibial, peroneal, or contralateral common femoral veins. There is no visualized superficial vein thrombosis. The soft tissues are unremarkable. IMPRESSION: No deep vein thrombosis in the right lower extremity. Dictated by Cipriano Johnston MD @ 03/28/2025 10:17:52 AM (Electronically Signed)
--- NOTE | 2025-03-28 09:40 | ED.CHESTPAIN ---
HPI - Chest Pain General Date Seen: 03/28/25 Chief Complaint: Chest Pain Stated Complaint: Chest pain 37 wk preg Time Seen by Provider: 03/28/25 09:15 Source: patient Mode of arrival: ambulatory Limitations: no limitations History of Present Illness HPI narrative: Patient is a 24-year-old female who is currently 37 weeks presenting to the emergency department for chest pain and shortness of breath. She states he was at her regular appointment today when she suddenly had symptoms of chest pain and shortness of breath. She states the symptoms have persisted till now. She was sent here directly from her appointment. States the appointment is otherwise uneventful. She denies fevers or chills. States she also feels lightheaded. The lightheadedness is worse when she gets up and moves around. She thinks she is well hydrated but cannot say for certain. Denies abdominal pain, nausea, vomiting, weakness, numbness. States the chest pain is a pressure dull ache in her chest. She does not really notice it more with deep breath. Does states she feels like her right lower extremity seem like it was more swollen a few days ago but that has since resolved. Has not noticed any swelling in her left lower extremity. No history of blood clots a family history of clotting disorders. Denies diarrhea, constipation, abdominal pain. Related Data Home Medications ?Medication ?Instructions ?Recorded ?Confirmed [id number] 3 fatty no.1 27 1 cap PO DAILY 02/07/25 03/28/25 mg-1 mg-300 mg capsule epinephrine 0.3 mg/0.3 mL 0.3 ml IM PRN anaphylaxis 02/07/25 03/28/25 injection, auto-injector lactobacillus combination no.9 4 4,000 mmu cells PO DAILY 02/07/25 03/28/25 billion cell capsule (Adult 50 Plus Probiotic) Allergies Allergy/AdvReac Type Severity Reaction Status Date / Time amoxicillin Allergy Intermediate Rash Verified 03/28/25 12:01 latex Allergy Intermediate SOB Verified 03/28/25 12:01 shellfish derived Allergy Intermediate Difficulty Verified 03/28/25 12:01 Breathing wool Allergy Intermediate Difficulty Verified 03/28/25 12:01 Breathing melon Allergy Itching Verified 03/28/25 12:01 peanuts Allergy Severe Anaphylaxis Uncoded 03/28/25 12:01 tree nuts Allergy Severe Anaphylaxis Uncoded 03/28/25 12:01 cilantro Allergy Intermediate Difficulty Uncoded 03/28/25 12:01 Breathing Review of Systems Status of ROS Reports: 10 or more systems reviewed and unremarkable except as noted in History and below [facility] Surgical History History of dermoid cyst excision ?Z98.890 - Other specified postprocedural states (ICD-10) ?Z86.018 - Personal history of other benign neoplasm (ICD-10) Social History Narrative: 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 Marital status: . Rastafarian/cultural needs: no. Chemical or radiation exposure: no. Pre- tobacco use: no. Pre- alcohol use: no. Current tobacco use: no. Current alcohol use: no. Recreational drug use: no. Dietary restrictions: no. Blood transfusion acceptable in an emergency: yes. PSYCHOSOCIAL HISTORY: History of depression or currently depressed: Denies. Current physical, emotional, or sexual mistreatment: Denies. Problems that will make it hard to make it to appointments: Denies. What is your current living situation?: I presently have a place to live Problems where you live: no known problems In the past 12 months, utilities in danger of being shut off: no In past 12 months, lack of transportation kept you from medical appts, meetings, work, or getting things needed for daily living: no In the past 12 mos, have been you worried that your food would run out before you had money to buy more?: never true In the past 12 mos, the food you bought just didn't last and you didn't have money to buy more?: never true Smoking Status: Never smoker How often do you have a drink containing alcohol: never AUDIT-C Alcohol total score: 0 Non-prescribed substance use: denies use How often does anyone, including family, friends and others, physically hurt you: never How often does anyone, including family, friends and others, insult or talk down to you: never How often does anyone, including family, friends and others, threaten you with harm: never How often does anyone, including family, friends and others, scream or curse at you: never Exam Narrative Exam Narrative: Const: Well-nourished, Well-developed, in mild distress Eyes: PERRL, no conjunctival injection, and symmetrical lids HENT: Atraumatic external nose and ears. Moist mucous membranes. Neck: Symmetric, trachea midline, No thyromegaly. CVS: RRR, No murmurs or gallops. Peripheral pulses 2+ and equal in all extremities RESP: Unlabored respiratory effort. Clear to auscultation bilaterally. GI: Nontender/Nondistended, No rebound or guarding. MSK:Extremities w/o deformity, Normal Active ROM Skin: Warm, Dry. No rashes or lesions. Neuro: Normal Muscle tone, No focal neurological deficits. Psych: Awake, Alert, & Oriented x3. Appropriate mood and affect. Const Vital Signs, click to edit/add: Vital Signs - 24 hr 03/28/25 09:05 03/28/25 09:38 03/28/25 09:41 Temperature 98.5 F Pulse Rate 107 H 105 H Pulse Rate [Pulse Oximeter] 106 H Respiratory Rate 16 14 17 Blood Pressure 124/87 Blood Pressure [Right Upper Arm] 127/80 Pulse Oximetry 97 97 96 Oxygen Delivery Method Room Air 03/28/25 09:45 03/28/25 12:04 03/28/25 12:05 Temperature Pulse Rate 99 105 H 100 Pulse Rate [Pulse Oximeter] Respiratory Rate 14 Blood Pressure 119/74 Blood Pressure [Right Upper Arm] Pulse Oximetry 97 97 97 Oxygen Delivery Method 03/28/25 12:15 03/28/25 12:21 03/28/25 12:30 Temperature Pulse Rate 95 100 98 Pulse Rate [Pulse Oximeter] Respiratory Rate 18 Blood Pressure 118/86 Blood Pressure [Right Upper Arm] Pulse Oximetry 97 98 98 Oxygen Delivery Method 03/28/25 12:44 03/28/25 12:45 03/28/25 13:08 Temperature Pulse Rate 99 92 101 H Pulse Rate [Pulse Oximeter] Respiratory Rate Blood Pressure Blood Pressure [Right Upper Arm] Pulse Oximetry 98 96 98 Oxygen Delivery Method 03/28/25 13:15 Temperature Pulse Rate 96 Pulse Rate [Pulse Oximeter] Respiratory Rate Blood Pressure Blood Pressure [Right Upper Arm] Pulse Oximetry 97 Oxygen Delivery Method Course Vital Signs Vital signs: Initial Vital Signs Respiratory Effort Normal, Spontaneous 03/28/25 09:03 Respiratory Depth Normal 03/28/25 09:03 Respiratory Pattern Normal 03/28/25 09:03 Vital Signs Temperature 98.5 F 03/28/25 09:05 Pulse Rate 106 H 03/28/25 09:05 Respiratory Rate 16 03/28/25 09:05 Blood Pressure 127/80 03/28/25 09:05 Pulse Oximetry 97 03/28/25 09:05 Oxygen Delivery Method Room Air 03/28/25 09:05 Temperature 98.5 F 03/28/25 09:05 Pulse Rate 96 03/28/25 13:15 Respiratory Rate 18 03/28/25 12:21 Blood Pressure 118/86 03/28/25 12:21 Pulse Oximetry 97 03/28/25 13:15 Oxygen Delivery Method Room Air 03/28/25 09:05 Medications Administered Medications: Discontinued Medications Generic Name Dose Route Start Last Admin Trade Name Freq PRN Reason Stop Dose Admin Lidocaine/Aluminum/Magnesium/Simeth 15 ml 03/28/25 10:49 03/28/25 10:58 Mag Hydrox/Aluminum Hyd/Simeth 30 Ml Oral.Susp PO 03/28/25 10:50 15 ml ONCE ONE Administration MDM - Chest Pain MDM Narrative Medical decision making narrative: Patient is a 24-year-old female presenting for chest pain and shortness of breath. The differential diagnosis of chest pain is broad and includes common etiologies such as musculoskeletal strain, GERD, pneumonia, etc. More serious etiologies considered include PE, coronary artery disease, pneumothorax, aortic dissection, aortic aneurysm. Considering he is his increased risk of PE. She did notice some lower extremity swelling on the right that has since resolved. Will do an ultrasound of his right lower extremity to make sure there is not a blood clot. Will also order a D-dimer to look for signs of PE. EKG and troponin ordered for signs of cardiac abnormalities. She looks otherwise well my concern for infection and aortic aneurysm rupture low. Chest x-ray ordered look for signs of pneumonia or pneumothorax. Viral swabs ordered. L of fluid given for possible dehydration. Lab work shows no acute concerning abnormalities other than a D-dimer 1.31. EKG and troponin show no acute concerning abnormalities. She was slightly tachycardic but this is not unexpected for someone who is . She is now saying her symptoms have resolved. Viral swabs are negative. Urinalysis shows no concerning abnormalities. Due to the elevated D-dimer I will order a CTA PE rule out. Risks and benefits were spoke to with the patient she is agreeable to this. The abdomen will be shielded. CTA interpreted by myself the radiologist showed no acute concerning abnormalities. Ultrasound interpreted by myself the radiologist showed no acute concerning abnormalities. Symptoms have now fully resolved. NST was done was showing no abnormalities. Patient did note she started feeling some contractions after the NST. I spoke to Dr. Gastelum who recommends transfer to the OB floor for labor rule out. Patient is agreeable to this plan Lab Data Labs: Lab Results 03/28/25 03/28/25 Range/Units 09:24 09:48 WBC 12.26 H (4.50-11.00) K/uL RBC 4.23 (4.00-5.20) m/uL Hgb 13.1 (12.0-16.0) gm/dL Hct 37.9 (33.0-51.0) % MCV 90 (80-100) fL MCH 31 (26-34) pg MCHC 35 (32-36) gm/dL RDW Coeff of Linda 12.7 (11.5-15.5) % Plt Count 245 (140-440) K/uL Neut % (Auto) 70.1 (42.0-72.0) % Lymph % (Auto) 17.5 L (20-44) % Slope % (Auto) 9.4 (0.0-11.0) % Eos % (Auto) 1.5 (0.0-7.0) % Baso % (Auto) 0.2 (0.0-3.0) % Neut # (Auto) 8.60 H (1.7-7.0) K/uL Lymph # (Auto) 2.10 (0.90-2.90) K/uL Slope # (Auto) 1.20 H (0.00-0.90) K/UL Eos # (Auto) 0.20 (0.00-0.50) K/uL Baso # (Auto) 0.00 (0.00-0.30) K/uL Abs Immat Gran (auto) 0.20 (0.00-0.30) K/uL Imm/Tot Granulo (auto) 1.3 % D-Dimer Quant (PE/DVT) 1.31 H (0.00-0.50) ug/ml Sodium 132 L (135-149) mmol/L Potassium 3.9 (3.6-5.1) mmol/L Chloride 107 (96-114) mmol/L Carbon Dioxide 20 (20-32) mmol/L Anion Gap 5 L (7-15) mEq/L BUN 5 (5-24) mg/dL Creatinine 0.4 L (0.5-1.5) mg/dL Estimated Creat Clear 168.57 Estimated GFR 140 ml/min Glucose 96 (60-115) mg/dL Calcium 9.1 (8.4-10.6) mg/dL Magnesium 1.6 (1.5-2.6) mg/dL POC Troponin I High Sensi < 2.9 L (2.9-13.0) pg/mL Urine Color Yellow (Yellow) Urine Appearance Clear (Clear) Urine pH 6.5 (5.0-8.5) Ur Specific [place] 1.025 (1.000-1.030) Urine Protein Negative (Negative) Urine Glucose (UA) Negative (Negative) Urine Ketones Trace A (Negative) Urine Blood Negative (Negative) Urine Nitrite Negative (Negative) Urine Bilirubin Negative (Negative) Urine Urobilinogen 0.2 (0.2-1.0) Ur Leukocyte Esterase Negative (Negative) SARS-CoV-2 (PCR) Negative SARS-CoV-2 (Negative) Influenza Type A (PCR) Negative PCR FLU A (Negative) Influenza Type B (PCR) Negative PCR FLU B (Negative) RSV (PCR) Negative PCR RSV (Negative) Imaging Data Venous US: Attestation: I have reviewed the pertinent imaging results. Radiologist's impression: No deep vein thrombosis in the right lower extremity. Dictated by Cipriano Johnston MD @ 03/28/2025 10:17:52 AM CTA chest: Attestation: I have reviewed the pertinent imaging results. Radiologist's impression: 1. Slightly limited due to contrast bolus timing favoring the left heart. No obvious central filling defect to suggest pulmonary embolus. No acute cardiopulmonary abnormality. Please note that all CT scans at this facility use dose modulation, iterative reconstruction, and/or weight-based dosing when appropriate to reduce radiation dose to as low as reasonably achievable. Dictated by Ajit Carter MD @ 03/28/2025 12:33:05 PM ECG Data Attestation: I personally reviewed and interpreted this ECG as follows: Prior ECG tracings: not available for review Interpretation: Sinus tachycardia the rate of 110 beats per minute, normal intervals, normal axis, ST or T-wave abnormalities. Discharge Plan Discharge Clinical Impression: Atypical chest pain Patient Disposition: Home, Self-Care Condition: Stable Instructions: Noncardiac Chest Pain (ED) Additional Instructions: Return for re-evaluation if symptoms come back or developed any other new or concerning symptoms. You will go to the OB floor for a labor rule out. Prescriptions: No Action epinephrine 0.3 mg/0.3 mL auto-injector 0.3 ml IM PRN (Reason: anaphylaxis) [id number] 3 fatty no.1 27-1-300 mg capsule 1 cap PO DAILY Adult 50 Plus Probiotic 4 billion cell capsule 4,000 mmu cells PO DAILY [facility] Stand Alone Forms: MyHealth Info Instructions
[2025-03-28 09:57] LABS: Hematocrit* 37.9 % (33.0-51.0); Hemoglobin* 13.1 gm/dL (12.0-16.0); Immature Granulocytes Pct Auto 1.3 %; Mean Corpuscular HGB Conc 35 gm/dL (32-36); Mean Corpuscular Hemoglobin 31 pg (26-34); Mean Corpuscular Volume 90 fL (80-100); RDW Coefficient of Variation % 12.7 % (11.5-15.5); Red Blood Count* 4.23 m/uL (4.00-5.20); White Blood Count* 12.26 K/uL (4.50-11.00)
[2025-03-28 10:06] LABS: Immature Granulocytes Abs Auto 0.20 K/uL (0.00-0.30); Lymphocytes Absolute Auto 2.10 K/uL (0.90-2.90); Slide Review Reflex No
[2025-03-28 10:09] LABS: Chloride* 107 mmol/L (96-114); Potassium* 3.9 mmol/L (3.6-5.1); Sodium* 132 mmol/L (135-149)
[2025-03-28 10:11] LABS: Blood Urea Nitrogen* 5 mg/dL (5-24)
[2025-03-28 10:12] LABS: Anion Gap 5 mEq/L (7-15); Calcium* 9.1 mg/dL (8.4-10.6); Carbon Dioxide* 20 mmol/L (20-32); Creatinine* 0.4 mg/dL (0.5-1.5); Est. Creatinine Clearance* 168.57; Estimated Glomerular Filt Rate 140 ml/min; Glucose* 96 mg/dL (60-115)
[2025-03-28 10:15] LABS: D Dimer Quantitative* 1.31 ug/ml (0.00-0.50)
[2025-03-28 10:35] LABS: PCR FLU A Negative PCR FLU A (Negative); PCR FLU B Negative PCR FLU B (Negative); PCR RSV Negative PCR RSV (Negative); SARS PCR* Negative SARS-CoV-2 (Negative)
--- NOTE | 2025-03-28 10:51 | CRLHL7_ITS ---
For Patients: As a result of the Century Cures Act, medical imaging exams and procedure reports are released immediately into your electronic medical record. You may view this report before your referring provider. If you have questions, please contact your health care provider. Indication: Chest pain, shortness of breath 37 weeks Technique: Volumetric multidetector CT images of the chest were obtained after the administration of IV contrast. 95 cc Isovue 370 low osmolar intravenous contrast Comparison: None available. Findings: The thoracic inlet and thyroid gland are unremarkable. The thoracic aorta is nonaneurysmal. Mildly limited due to slightly non optimized contrast bolus timing with preferential opacification of the pulmonary veins. No obvious filling defect to suggest pulmonary embolus. There is no mediastinal, hilar or axillary adenopathy. The trachea and bronchi are well aerated without significant bronchiectasis. There is no focal consolidation, effusion or pneumothorax. There is no evidence of pulmonary mass or suspicious pulmonary nodule. The partially visualized upper abdomen demonstrates moderate hepatomegaly. There is a small hiatal hernia. The thoracic vertebral body heights are grossly maintained with minimal endplate Schmorl`s defects. Impression: 1. Slightly limited due to contrast bolus timing favoring the left heart. No obvious central filling defect to suggest pulmonary embolus. No acute cardiopulmonary abnormality. Please note that all CT scans at this facility use dose modulation, iterative reconstruction, and/or weight-based dosing when appropriate to reduce radiation dose to as low as reasonably achievable. Dictated by Ajit Carter MD @ 03/28/2025 12:33:05 PM (Electronically Signed)
[2025-03-28] MEDS: MAG HYDROX/ALUMINUM HYD/SIMETH 30 ML ORAL.SUSP 15 ML PO (10:58)
--- NOTE | 2025-03-28 12:43 | PC.OBNST ---
NST Note NST Note Start: 03/28/25 11:40 Freq: ONCE Status: Active Protocol: Document 03/28/25 12:30 MMS (Rec: 03/28/25 12:43 MMS No Response) NST Note 2 Para (# of births) 1 EDC 04/13/25 Gestational Age In 37 Weeks & 5 Days Weeks & Days Patient Presented Pain with Complaint(s) of If Pain, describe Chest pain location Reactive Yes Appropriate for Yes Gestational Age JUDSON Campbell,RN Date 03/28/25 Reactive Yes Appropriate for Yes Gestational Age JUDSON Spivey RN Date 03/28/25 OB NST charge Yes Complete NST Note Yes via Write Note The provider's electronic signature indicates the NST is reactive/appropriate for gestational age. *Note to provider: If an addendum is required, open the patient's chart and click on the note under the Nurse/Allied Health tab.
--- NOTE | 2025-03-28 17:22 | PC.OBNST ---
NST Note NST Note Start: 03/28/25 11:40 Freq: ONCE Status: Complete Protocol: Document 03/28/25 12:30 MMS (Rec: 03/28/25 12:43 MMS No Response) NST Note 2 Para (# of births) 1 EDC 04/13/25 Gestational Age In 37 Weeks & 5 Days Weeks & Days Patient Presented Pain with Complaint(s) of If Pain, describe Chest pain location Reactive Yes Appropriate for Yes Gestational Age JUDSON Bautista RN Date 03/28/25 Reactive Yes Appropriate for Yes Gestational Age JUDSON Spivey RN Date 03/28/25 OB NST charge Yes Complete NST Note Yes via Write Note NST Note Start: 03/28/25 13:53 Freq: ONCE Status: Active Protocol: Document 03/28/25 13:53 MMS (Rec: 03/28/25 17:22 [facility] [id number]) NST Note 2 Para (# of births) 1 EDC 04/13/25 Gestational Age In 37 Weeks & 5 Days Weeks & Days Patient Presented Contractions/cramping with Complaint(s) of Reactive Yes Appropriate for Yes Gestational Age JUDSON Bautista RN Date 03/28/25 Reactive Yes Appropriate for Yes Gestational Age JUDSON Spivey RN Date 03/28/25 OB NST charge Yes Complete NST Note Yes via Write Note The provider's electronic signature indicates the NST is reactive/appropriate for gestational age. *Note to provider: If an addendum is required, open the patient's chart and click on the note under the Nurse/Allied Health tab.
== END 2025-03-28 17:23 | disposition home or self-care (01) ==
LOC: ED 13:38 → OB OUT 13:40 → OB 13:41
PROVIDERS: Emergency Provider Student in an Organized Health Care Education/Training Program; Visit Provider Obstetrics & Gynecology
DX: O26.893 Other specified pregnancy related conditions, third trimester (principal); R07.89 Other chest pain; Z3A.37 37 weeks gestation of pregnancy
CPT/HCPCS: 36415; 59025; 71275; 80048; 81003; 83735; 84484; 85025; 85379; 87631; 93005; 93971; 99284; 99285; G0463; A9270; Q9967